=== PATIENT | male | born 1980 | race Caucasian/White ===

== ENCOUNTER 2017-11-11 11:44 | Emergency (ER) | payer BC ==
[~2017-11-11] VITALS: Ht 177.8 cm; Wt 120.0 kg
[2017-11-11 11:47] VITALS: BP 145/60; PULSE 78; RESP 20; TEMP 97.2; O2SAT 98
[2017-11-11] MEDS ORDERED: SODIUM CHLOR 0.9% 1000 ML INJ 1,000 ML IV SCH (12:21)
[2017-11-11 12:30] VITALS: O2SAT 100
[2017-11-11] MEDS ORDERED: ONDANSETRON HCL 4 MG/2 ML VIAL IVP ONE (12:30)
[2017-11-11] MEDS ORDERED: SODIUM CHLORIDE 0.9% FLUSH 10 ML FLUSH IV FLUSH PRN (12:30)
[2017-11-11] MEDS ORDERED: MORPHINE SULFATE 4 MG/ML INJ IV PUSH ONE ×2 (12:30)
[2017-11-11] MEDS ORDERED: KETOROLAC TROMETHAMINE 30 MG/ML (IVP) VIAL IV PUSH ONE (12:30)
[2017-11-11 12:37] LABS: AUTOMATED NEUTROPHIL # 6.2 TH/MM3 (1.8-7.7); BASOPHIL # 0.1 TH/MM3 (0-0.2); BASOPHIL % 0.4 % (0.0-2.0); EOSINOPHIL # 0.2 TH/MM3 (0-0.4); EOSINOPHIL % 1.3 % (0.0-4.0); HEMOGLOBIN 13.3 GM/DL (13.0-17.0); LYMPH % 37.4 % (9.0-44.0); LYMPHOCYTE # 4.7 TH/MM3 (1.0-4.8); MEAN CELL VOLUME 75.9 FL (80.0-100.0); MEAN CORPUSCULAR HEMOGLOBIN 24.6 PG (27.0-34.0); MEAN CORPUSCULAR HGB CONC 32.4 % (32.0-36.0); MEAN PLATELET VOLUME 8.3 FL (7.0-11.0); MONO % 11.4 % (0.0-8.0); MONOCYTE # 1.4 TH/MM3 (0-0.9); NEUT % 49.5 % (16.0-70.0); PLATELET COUNT 454 TH/MM3 (150-450); RED CELL DISTRIBUTION WIDTH 13.5 % (11.6-17.2); WHITE BLOOD COUNT 12.4 TH/MM3 (4.0-11.0)
[2017-11-11 12:58] LABS: ALKALINE PHOSPHATASE 89 U/L (45-117); TOTAL BILIRUBIN ADULT 0.3 MG/DL (0.2-1.0); TOTAL PROTEIN 7.7 GM/DL (6.4-8.2)
[2017-11-11 13:07] LABS: ALBUMIN 3.5 GM/DL (3.4-5.0); ALT (GPT) 47 U/L (12-78); AST (GOT) 35 U/L (15-37); BICARBONATE 24.3 MEQ/L (21.0-32.0); BLOOD UREA NITROGEN 14 MG/DL (7-18); CALCIUM 8.2 MG/DL (8.5-10.1); CHLORIDE 105 MEQ/L (98-107); CREATININE 1.16 MG/DL (0.60-1.30); GLOMERULAR FILTRATION RATE 71 ML/MIN (>89); GLUCOSE,RANDOM 121 MG/DL (74-106); SODIUM (NA) 140 MEQ/L (136-145)
--- NOTE | 2017-11-11 13:13 | PD ---
HPI Chief Complaint: Abdominal Pain Time Seen by Provider: 12:21 Travel History International Travel<30 days: No Contact w/Intl Traveler<30days: No Traveled to known affect area: No History of Present Illness HPI 37 Youlilia presents emerged recommend abrupt onset of right inguinal pain starting yesterday associate with nausea, no vomiting, with constant severe pain. He has never had similar symptoms in the past. He otherwise had been feeling well and healthy before the onset of the symptoms. History Past Medical History Medical History: Denies Significant Hx Social History Alcohol Use: No Tobacco Use: No Allergies-Medications (Allergen,Severity, Reaction): Coded Allergies: No Known Allergies (Unverified , 11/11/17) Review of Systems Except as stated in HPI: all other systems reviewed are Neg Physical Exam Narrative GENERAL: 37-year-old man, writhing in bed, very uncomfortable peer SKIN: Focused skin assessment warm/dry. HEAD: Atraumatic. Normocephalic. EYES: Pupils equal and round. No scleral icterus. No injection or drainage. ENT: No nasal bleeding or discharge. Mucous membranes pink and moist. NECK: Trachea midline. No JVD. CARDIOVASCULAR: Regular rate and rhythm. No murmur appreciated. RESPIRATORY: No accessory muscle use. Clear to auscultation. Breath sounds equal bilaterally. GASTROINTESTINAL: Abdomen is obese, soft, mild right lower quadrant abdominal tenderness. MUSCULOSKELETAL: No obvious deformities. No clubbing. No cyanosis. No edema. NEUROLOGICAL: Awake and alert. No obvious cranial nerve deficits. Motor grossly within normal limits. Normal speech. PSYCHIATRIC: Appropriate mood and affect; insight and judgment normal. Data Data Last Documented VS Vital Signs Date Time Temp Pulse Resp B/P (MAP) Pulse Ox O2 Delivery O2 Flow Rate FiO2 11/11/17 12:30 100 Room Air 11/11/17 11:47 97.2 78 20 145/60 (88) Orders Orders Complete Blood Count With Diff (11/11/17 12:21) Comprehensive Metabolic Panel (11/11/17 12:21) Lipase (11/11/17 12:21) Urinalysis - C+S If Indicated (11/11/17 12:21) Iv Access Insert/Monitor (11/11/17 12:21) Ecg Monitoring (11/11/17 12:21) Oximetry (11/11/17 12:21) Morphine Inj (Morphine Inj) (11/11/17 12:30) Ondansetron Inj (Zofran Inj) (11/11/17 12:30) Sodium Chlor 0.9% 1000 Ml Inj (Ns 1000 M (11/11/17 12:21) Sodium Chloride 0.9% Flush (Ns Flush) (11/11/17 12:30) Ct Abd/Pel W/O Iv Contrast (11/11/17 ) Morphine Inj (Morphine Inj) (11/11/17 12:30) Ketorolac Inj (Toradol Inj) (11/11/17 12:30) Labs Laboratory Tests Test 11/11/17 12:30 11/11/17 14:22 White Blood Count 12.4 TH/MM3 Red Blood Count 5.40 MIL/MM3 Hemoglobin 13.3 GM/DL Hematocrit 41.0 % Mean Corpuscular Volume 75.9 FL Mean Corpuscular Hemoglobin 24.6 PG Mean Corpuscular Hemoglobin Concent 32.4 % Red Cell Distribution Width 13.5 % Platelet Count 454 TH/MM3 Mean Platelet Volume 8.3 FL Neutrophils (%) (Auto) 49.5 % Lymphocytes (%) (Auto) 37.4 % Monocytes (%) (Auto) 11.4 % Eosinophils (%) (Auto) 1.3 % Basophils (%) (Auto) 0.4 % Neutrophils # (Auto) 6.2 TH/MM3 Lymphocytes # (Auto) 4.7 TH/MM3 Monocytes # (Auto) 1.4 TH/MM3 Eosinophils # (Auto) 0.2 TH/MM3 Basophils # (Auto) 0.1 TH/MM3 CBC Comment AUTO DIFF Differential Comment AUTO DIFF CONFIRMED Blood Urea Nitrogen 14 MG/DL Creatinine 1.16 MG/DL Random Glucose 121 MG/DL Total Protein 7.7 GM/DL Albumin 3.5 GM/DL Calcium Level 8.2 MG/DL Alkaline Phosphatase 89 U/L Aspartate Amino Transf (AST/SGOT) 35 U/L Alanine Aminotransferase (ALT/SGPT) 47 U/L Total Bilirubin 0.3 MG/DL Sodium Level 140 MEQ/L Potassium Level 4.0 MEQ/L Chloride Level 105 MEQ/L Carbon Dioxide Level 24.3 MEQ/L Anion Gap 11 MEQ/L Estimat Glomerular Filtration Rate 71 ML/MIN Lipase 149 U/L Urine Color YELLOW Urine Turbidity HAZY Urine pH 5.0 Urine Specific [place] 1.019 Urine Protein TRACE mg/dL Urine Glucose (UA) NEG mg/dL Urine Ketones NEG mg/dL Urine Occult Blood MOD Urine Nitrite NEG Urine Bilirubin NEG Urine Urobilinogen LESS THAN 2.0 MG/DL Urine Leukocyte Esterase NEG Urine RBC /hpf Urine WBC 2 /hpf Urine Squamous Epithelial Cells <1 /hpf Urine Bacteria RARE /hpf Urine Mucus FEW /lpf Microscopic Urinalysis Comment CULT NOT INDICATED MDM Medical Decision Making Medical Screen Exam Complete: Yes Emergency Medical Condition: Yes Interpretation(s) LABS: CBC is remarkable for mild leukocytosis. CMP is unremarkable. Lipase unremarkable. UA with significant hematuria. Chest CT: Tiny obstructing stone at the right UVJ causing mild dilatation of the ureter and collecting system. Differential Diagnosis Renal lithiasis, UTI, torsion, hernia, other Narrative Course Medical decision-making 37 Youlilia presents the abrupt onset of right inguinal pain, severe, likely renal stone. Will check labs, CT, urine, reassess. Diagnosis Primary Impression: Renal lithiasis Additional Instructions: Take medications as prescribed. For the next 2-4 days. Return to the emergency department for any worsening pain, fevers, intractable vomiting, or any other new or worsening symptoms. Med/Other Pt SpecificInfo: Prescription(s) given Scripts Naproxen (Naproxen) 500 Mg Tab 500 MG PO BID, #20 TAB 0 Refills Prov: Kenneth Ricks MD 11/11/17 Oxycodone-Acetaminophen (Percocet) 5-325 mg Tab 1-2 TAB PO Q6H Y for PAIN, #12 TAB 0 Refills Prov: Kenneth Ricks MD 11/11/17 Ondansetron Odt (Ondansetron Odt) 4 Mg Tab 4 MG SL Q8HR Y for Nausea/Vomiting, #12 TAB 0 Refills Prov: Kenneth Ricks MD 11/11/17 Disposition: 01 DISCHARGE HOME Condition: Stable Kenneth Ricks MD November 11, 2017 13:13
--- NOTE | 2017-11-11 13:38 | RADRPT ---
EXAM DATE/TIME: 11/11/2017 13:03 [facility] COMPARISON: No previous studies available for comparison. INDICATIONS : Right side abdominal pain. ORAL CONTRAST: No oral contrast ingested. RADIATION DOSE: 22.40 CTDIvol (mGy) MEDICAL HISTORY : None SURGICAL HISTORY : None. ENCOUNTER: Initial ACUITY: 1 day PAIN SCALE: 5/10 LOCATION: Right flank TECHNIQUE: Renal colic protocol. Volumetric scanning of the abdomen and pelvis was performed. Using automated exposure control and adjustment of the mA and/or kV according to patient size, radiation dose was kep t as low as reasonably achievable to obtain optimal diagnostic quality images. DICOM format image da ta is available electronically for review and comparison. FINDINGS: Right side: No calcifications within the collecting system. There is mild dilation of the collecting system and right ureter down to the ureterovesical junction. There is a tiny (less than 2 mm) calcification at the ureterovesical junction. Left side: No evidence of hydronephrosis. 2 mm calcified stone in the lower pole collecting system. No calcifi cations in the left ureter. Bladder: Smooth margins. No calcifications within the lumen. Other: No dilated loops of small or large bowel. No calcified gallstones. CONCLUSION: 1. Tiny obstructing stone at the right ureterovesical junction causing mild dilation of the ureter an d collecting system. 2. Nonobstructing tiny stone in the lower pole collecting system of the left kidney. Saeid Avalos MD on November 11, 2017 at 13:32 Board Certified Radiologist. This report was verified electronically.
[2017-11-11 14:20] VITALS: BP 142/75; PULSE 86; RESP 17; O2SAT 100
[2017-11-11 14:35] LABS: BACTERIA, URINE RARE /hpf; BILIRUBIN, URINE NEG (NEG); BLOOD, URINE MOD (NEG); GLUCOSE,URINE NEG (NEG); KETONE, URINE NEG (NEG); MUCUS URINE FEW /lpf (OCC); NITRITE,URINE NEG (NEG); SQUAMOUS EPITHELIAL CELL URINE <1 /hpf (0-5); URINE COLOR YELLOW (YELLW/STRAW); URINE LEUKOCYTE ESTERASE NEG (NEG)
[2017-11-11] MEDS ORDERED: NAPR500T2 PO (14:49)
[2017-11-11] MEDS ORDERED: ONDA4TAB7 SL (14:49)
[2017-11-11] MEDS ORDERED: PERC5TAB12 PO (14:49)
== END 2017-11-11 15:29 | disposition home or self-care (01) ==
LOC: NEPE 11:44
DX: N20.0 Calculus of kidney (principal)
CPT/HCPCS: 74176; 80053; 81001; 83690; 85025; 96361; 96374; 96375; 96376; 99284; J1885; J2270; J2405; J7030